=== PATIENT | female | born 1990 | race Caucasian/White ===

== ENCOUNTER 2018-05-02 20:46 | Emergency (ER) | payer MEDICARE, MEDICAID ==
[2018-05-02 21:21] VITALS: BP 116/76
--- NOTE | 2018-05-02 22:02 | EDM.PDOC ---
ED HPI GENERAL MEDICAL PROBLEM - General Chief Complaint: Skin Complaint Stated Complaint: BIG BRUISE ON LEFT LEG Time Seen by Provider: 05/02/18 21:59 Source of Information: Reports: Patient History Limitations: Reports: No Limitations - History of Present Illness INITIAL COMMENTS - FREE TEXT/NARRATIVE: With noted bruise to left lower leg. Unknown if she injured it. Does bruise easily. No pain to lower leg. No pain with walking. Onset: Gradual Onset Date: 04/28/18 Duration: Getting Worse Location: Reports: Lower Extremity, Left Severity: Mild Improves with: Reports: None Worsens with: Reports: None Associated Symptoms: Reports: No Other Symptoms - Related Data Allergies Allergy/AdvReac Type Severity Reaction Status Date / Time No Known Allergies Allergy Verified 05/02/18 21:21 Home Meds: Home Meds Calcium Carbonate/Vitamin D3 [Calcium 600 + Vit D Tablet] 1 each PO DAILY [History] Omeprazole Magnesium [Prilosec Otc] 20 mg PO DAILY 07/23/16 [History] Prenat Vit Comb.10/Iron/Fa/Dha [Vitafol-OB + DHA] 1 tab PO DAILY 07/23/16 [ History] Past Medical History - Past Health History Medical/Surgical History: Denies Medical/Surgical History Cardiovascular History: Reports: None 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 History: Reports: GERD 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: Other Musculoskeletal History: scoliosis Endocrine/Metabolic History: Reports: Diabetes, Gestational - Past Surgical History Other HEENT Surgeries/Procedures: lazy eye surgery Social & Family History - Tobacco Use Smoking Status *Q: Current Every Day Smoker Years of Tobacco use: 12 Packs/Tins Daily: 0.5 - Caffeine Use Caffeine Use: Reports: None - Recreational Drug Use Recreational Drug Use: No ED ROS GENERAL - Review of Systems Review Of Systems: See Below Constitutional: Reports: No Symptoms HEENT: Reports: No Symptoms Respiratory: Reports: No Symptoms Cardiovascular: Reports: No Symptoms Endocrine: Reports: No Symptoms GI/Abdominal: Reports: No Symptoms : Reports: No Symptoms Musculoskeletal: Reports: No Symptoms Skin: Reports: Bruising (left lower leg) Neurological: Reports: No Symptoms ED EXAM, SKIN/RASH Exam: See Below General Appearance: Alert, WD/WN, No Apparent Distress Ears: Normal External Exam, Normal Canal, Hearing Grossly Normal, Normal TMs Nose: Normal Inspection, Normal Mucosa, No Blood Throat/Mouth: Normal Inspection, Normal Lips, Normal Teeth, Normal Gums, Normal Oropharynx, Normal Voice, No Airway Compromise Head: Atraumatic, Normocephalic Neck: Normal Inspection, Supple, Non-Tender, Full Range of Motion Respiratory/Chest: No Respiratory Distress, Lungs Clear, Normal Breath Sounds, No Accessory Muscle Use, Chest Non-Tender Cardiovascular: Normal Peripheral Pulses, Regular Rate, Rhythm, No Edema, No Gallop, No JVD, No Murmur, No Rub GI/Abdominal: Normal Bowel Sounds, Soft, Non-Tender, No Organomegaly, No Distention, No Abnormal Bruit, No Mass Skin: Ecchymosis (bruise to left lower leg, medial ankle area) Course - Vital Signs Last Recorded V/S: Last Vital Signs Temp 97.8 F 05/02/18 21:24 Pulse 77 05/02/18 21:24 Resp 18 05/02/18 21:24 BP 116/76 05/02/18 21:24 Pulse Ox 97 05/02/18 21:24 - Orders/Labs/Meds Labs: Laboratory Tests 05/02/18 Range/Units 22:08 WBC 9.2 (4.5-11.0) K/uL RBC 4.70 (3.30-5.50) M/uL Hgb 13.6 D (12.0-15.0) g/dL Hct 40.3 (36.0-48.0) % MCV 86 (80-98) fL MCH 29 (27-31) pg MCHC 34 (32-36) % Plt Count 228 (150-400) K/uL Neut % (Auto) 68 H (36-66) % Lymph % (Auto) 20 L (24-44) % [place] % (Auto) 9 H (2-6) % Eos % (Auto) 2 (2-4) % Baso % (Auto) 0 (0-1) % Departure - Departure Time of Disposition: 22:16 Disposition: Home, Self-Care 01 Condition: Good Clinical Impression: Superficial bruising of ankle Qualifiers: Encounter type: initial encounter Laterality: left Qualified Code(s): S90.02XA - Contusion of left ankle, initial encounter - Discharge Information Instructions: Contusion, [id number] Referrals: Jonah Majano MD [Primary Care Provider] - Forms: ED Department Discharge Additional Instructions: CBC normal. Recommend injury prevention. May use ice to area. Reassurance given. Bruising will resolve over time. - Problem List & Annotations (1) Superficial bruising of ankle SNOMED Code(s): 38015515 Code(s): S90.00XA - CONTUSION OF UNSPECIFIED ANKLE, INITIAL ENCOUNTER Status: Acute Priority: Low Current Visit: Yes Qualifiers: Encounter type: initial encounter Laterality: left Qualified Code(s): S90.02XA - Contusion of left ankle, initial encounter
== END 2018-05-02 22:41 | disposition home or self-care (01) ==
LOC: JP.ED 20:46
DX: S90.02XA Contusion of left ankle, initial encounter (principal); K21.9 Gastro-esophageal reflux disease without esophagitis; F17.210 Nicotine dependence, cigarettes, uncomplicated; Z79.899 Other long term (current) drug therapy; X58.XXXA Exposure to other specified factors, initial encounter
CPT/HCPCS: 36415; 85025; 99284

== ENCOUNTER 2019-01-25 06:48 | Inpatient (IN) | payer MEDICARE, MEDICAID ==
[2019-01-25] MEDS ORDERED: Sodium Chloride 0.9% 1,000 ML IV ONE (07:43)
[2019-01-25] MEDS ORDERED: Misoprostol 50 MCG (1/2 of 100 MCG) Tab VAG ONE (07:53)
[2019-01-25] MEDS ORDERED: Ondansetron 4 MG/2 ML SDV IV PRN (08:03)
[2019-01-25] MEDS ORDERED: Acetaminophen 325 MG Tab PO PRN (08:03)
[2019-01-25] MEDS ORDERED: Sodium Chloride 0.9% 10 ML Syringe FLUSH PRN (08:03)
[2019-01-25] MEDS ORDERED: fentaNYL 100 MCG/2 ML SDV IVPUSH PRN (08:03)
--- NOTE | 2019-01-25 08:15 | PCM.LDHP ---
<Mckenzie Peterson - Last Filed: 01/25/19 08:10> L&D History of Present Illness - General Date of Service: 01/25/19 (Elective Induction ) Admit Problem/Dx: Patient Status Order with Admit Dx/Problem 01/25/19 08:04 Patient Status [ADT] Routine Admission Diagnosis/Problem Admission Diagnosis/Problem Term Source of Information: Patient History Limitations: Reports: No Limitations - History of Present Illness Introduction:: 01/25/19 Patient here for elective term induction of labor. SVE /-1. Timing/Duration: Reports: seconds:, minutes: (4-5) Severity: Mild Pain Score: 0 Improves with: Reports: None Worsens with: Reports: None Associated Symptoms: Reports: vaginal discharge (some bloody show with SVE) - Related Data Allergies/Adverse Reactions: Allergies Allergy/AdvReac Type Severity Reaction Status Date / Time No Known Allergies Allergy Verified 05/02/18 21:21 Home Medications: Home Meds Calcium Carbonate/Vitamin D3 [Calcium 600 + Vit D Tablet] 1 each PO DAILY [History] Omeprazole Magnesium [Prilosec Otc] 20 mg PO DAILY 07/23/16 [History] Prenat Vit Comb.10/Iron/Fa/Dha [Vitafol-OB + DHA] 1 tab PO DAILY 07/23/16 [ History] Past Medical History - Past Health History Medical/Surgical History: Denies Medical/Surgical History Cardiovascular History: Reports: None 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 History: Reports: GERD 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 Para: 2 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 (Approximate): (YANDEL 01/23/19) Other Musculoskeletal History: scoliosis Psychiatric History: Reports: Anxiety, Depression, Learning Disability Endocrine/Metabolic History: Reports: Diabetes, Gestational - Infectious Disease History Infectious Disease History: Reports: Chicken Pox - Past Surgical History Other HEENT Surgeries/Procedures: lazy eye surgery Social & Family History - Family History Family Medical History: Noncontributory - Caffeine Use Caffeine Use: Reports: Soda Other Caffeine Use: rarely H&P Review of Systems - Review of Systems: Review Of Systems: See Below General: Reports: No Symptoms HEENT: Reports: Post Nasal Drip, Sinus Congestion Pulmonary: Reports: No Symptoms Cardiovascular: Reports: No Symptoms 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: Reports: No Symptoms Genitourinary: Reports: No Symptoms Musculoskeletal: Reports: No Symptoms Skin: Reports: No Symptoms Psychiatric: Reports: No Symptoms Neurological: Reports: No Symptoms Hematologic/Lymphatic: Reports: No Symptoms Immunologic: Reports: No Symptoms L&D Exam - Exam Exam: See Below - Vital Signs Weight: 145 lb - OB Specific Contraction Duration (sec): 60-90 Contraction Frequency (min): 5-7 Contraction Intensity: Mild Movement: Active Heart Tones: Present Heart Tones per Min: 120 Heart Rate (FHR) Variability: Moderate (6-25 bmp) Presentation: Vertex - Saunders Score Saunders Score Cervix Position: Midposition Saunders Score Consistency: Medium Saunders Score Effacement: 51-70% Saunders Score Dilation: 3-4 cm Saunders Score 's Station: -1 ,0 Saunders Score Total: 8 - Exam General: Alert, Oriented HEENT: PERRLA, Conjunctiva Clear, EOMI, Hearing Intact, Mucosa Moist & [place], Nares Patent, Pupils Equal, Pupils Reactive Neck: Supple, Trachea Midline Lungs: Clear to Auscultation, Normal Respiratory Effort Cardiovascular: Regular Rate, Regular Rhythm GI/Abdominal Exam: Normal Bowel Sounds, Soft, Non-Tender, No Distention Rectal Exam: Normal Exam, Normal Rectal Tone Genitourinary: Normal external exam, Vaginal discharge. No: Vaginal bleeding Back Exam: Normal Inspection, Full Range of Motion Extremities: Normal Inspection, Normal Range of Motion, Non-Tender, No Pedal Edema, Normal Capillary Refill Skin: Warm, Dry, Intact Neurological: Cranial Nerves Intact, Reflexes Equal Bilateral Psychiatric: Alert, Normal Affect, Normal Mood - Patient Data Lab Results Last 24 hrs: Laboratory Results - last 24 hr 01/25/19 01/25/19 Range/Units 07:16 07:17 WBC 13.2 H (4.5-11.0) K/uL RBC 3.86 (3.30-5.50) M/uL Hgb 11.4 L D (12.0-15.0) g/dL Hct 33.4 L (36.0-48.0) % MCV 87 (80-98) fL MCH 30 (27-31) pg MCHC 34 (32-36) % Plt Count 177 (150-400) K/uL Neut % (Auto) 83 H (36-66) % Lymph % (Auto) 8 L (24-44) % [place] % (Auto) 9 H (2-6) % Eos % (Auto) 0 L (2-4) % Baso % (Auto) 0 (0-1) % Urine Color Yellow Urine Appearance Cloudy Urine pH 5.0 (4.5-8.0) Ur Specific [place] 1.020 (1.008-1.030) Urine Protein 30 H (NEGATIVE) mg/dL Urine Glucose (UA) Normal (NEGATIVE) mg/dL Urine Ketones 150 H (NEGATIVE) mg/dL Urine Occult Blood Large (NEGATIVE) Urine Nitrite Negative (NEGATIVE) Urine Bilirubin Negative (NEGATIVE) Urine Urobilinogen Normal (NORMAL) mg/dL Ur Leukocyte Esterase Large (NEGATIVE) Urine RBC 10-20 H (0-5) Urine WBC 50-75 H (0-5) Ur Epithelial Cells Many Amorphous Sediment Not seen Urine Bacteria Many Urine Mucus Many Result Diagrams: 01/25/19 07:16 - Problem List (1) SNOMED Code(s): 35511524 ICD Code: Z34.90 - ENCNTR FOR SUPRVSN OF NORMAL , UNSP, UNSP TRIMESTER Status: Acute Current Visit: Yes Qualifiers: Weeks of gestation: 40 weeks Qualified Code(s): Z3A.40 - 40 weeks gestation of (2) Elective induction of labor planned SNOMED Code(s): 997760593 ICD Code: CGD4603 - Status: Acute Current Visit: Yes (3) URI (upper respiratory infection) SNOMED Code(s): 43218105 ICD Code: J06.9 - ACUTE UPPER RESPIRATORY INFECTION, UNSPECIFIED Status: Acute Current Visit: Yes Qualifiers: URI type: unspecified viral URI Qualified Code(s): J06.9 - Acute upper respiratory infection, unspecified Problem List Initiated/Reviewed/Updated: Yes Orders Last 24hrs: Active Orders 24 hr Category Date Time Status Patient Status [ADT] Routine ADT 01/25/19 08:04 Ordered Antiembolic Devices [RC] .Routine Care 01/25/19 08:08 Ordered Communication Order [RC] ASDIRECTED Care 01/25/19 08:04 Ordered Heart Tones [RC] PER UNIT ROUTINE Care 01/25/19 08:04 Ordered Non Stress Test [RC] Click to Edit Care 01/25/19 08:04 Ordered Notify Provider Vital Signs [RC] PRN Care 01/25/19 08:09 Ordered Notify Provider [RC] PRN Care 01/25/19 08:04 Ordered Up ad Cara [RC] ASDIRECTED Care 01/25/19 08:03 Ordered Urinary Catheter Assessment [RC] ASDIRECTED Care 01/25/19 08:03 Ordered VTE/DVT Education [RC] Click to Edit Care 01/25/19 08:08 Ordered Vital Signs [RC] PER UNIT ROUTINE Care 01/25/19 08:04 Ordered Clear Liquid Diet [DIET] Diet 01/25/19 Lunch Ordered Regular Diet [DIET] Diet 01/25/19 Breakfast Ordered Acetaminophen [Tylenol] Med 01/25/19 08:03 Ordered 650 mg PO Q4H PRN Ondansetron [Zofran] Med 01/25/19 08:03 Ordered 4 mg IV Q4H PRN Sodium Chloride 0.9% [Normal Saline] 1,000 ml Med 01/25/19 07:43 Active IV .BOLUS Sodium Chloride 0.9% [Saline Flush] Med 01/25/19 08:03 Ordered 10 ml FLUSH ASDIRECTED PRN fentaNYL [Sublimaze] Med 01/25/19 08:03 Ordered 100 mcg IVPUSH Q1H PRN DVT/VTE Prophylaxis Reflex [OM.PC] Routine Oth 01/25/19 08:03 Ordered Saline Lock Insert [OM.PC] Routine Oth 01/25/19 08:04 Ordered Resuscitation Status Routine Resus Stat 01/25/19 08:03 Ordered Medication Orders Sodium Chloride (Normal Saline) 1,000 mls @ 999 mls/hr IV .BOLUS ONE Stop: 01/25/19 08:43 Last Admin: 01/25/19 07:48 Dose: 999 mls/hr Assessment/Plan Comment:: 01/25/19 28 yo is here for planned elective induction of labor. SVE /-1. GBS neg Hep B/C/HIV,RPR all negative EFW 7# Ketones elevated in urinalysis URI, common cold, feeling better than this weekend Plan: Cytotec 50 mcg placed vaginally 1L fluid bolus for ketones, then hydrate with 125 ml/hr Epidural when patient desires Plan to do ROM vs more cytotec vs pitocin around lunch Plan <Billie Amaral - Last Filed: 01/25/19 12:24> L&D History of Present Illness - General Admit Problem/Dx: Patient Status Order with Admit Dx/Problem 01/25/19 08:04 Patient Status [ADT] Routine Admission Diagnosis/Problem Admission Diagnosis/Problem Term L&D Exam - Vital Signs Vital Signs: Last Vital Signs Temp 96.3 F 01/25/19 07:06 Pulse 96 01/25/19 07:06 Resp 16 01/25/19 07:06 BP 107/60 01/25/19 07:06 Pulse Ox 98 01/25/19 07:06 - Patient Data Lab Results Last 24 hrs: Laboratory Results - last 24 hr 01/25/19 01/25/19 01/25/19 Range/Units 07:16 07:17 09:54 WBC 13.2 H (4.5-11.0) K/uL RBC 3.86 (3.30-5.50) M/uL Hgb 11.4 L D (12.0-15.0) g/dL Hct 33.4 L (36.0-48.0) % MCV 87 (80-98) fL MCH 30 (27-31) pg MCHC 34 (32-36) % Plt Count 177 (150-400) K/uL Neut % (Auto) 83 H (36-66) % Lymph % (Auto) 8 L (24-44) % [place] % (Auto) 9 H (2-6) % Eos % (Auto) 0 L (2-4) % Baso % (Auto) 0 (0-1) % Urine Color Yellow Urine Appearance Cloudy Urine pH 5.0 (4.5-8.0) Ur Specific [place] 1.020 (1.008-1.030) Urine Protein 30 H (NEGATIVE) mg/dL Urine Glucose (UA) Normal (NEGATIVE) mg/dL Urine Ketones 150 H (NEGATIVE) mg/dL Urine Occult Blood Large (NEGATIVE) Urine Nitrite Negative (NEGATIVE) Urine Bilirubin Negative (NEGATIVE) Urine Urobilinogen Normal (NORMAL) mg/dL Ur Leukocyte Esterase Large (NEGATIVE) Urine RBC 10-20 H (0-5) Urine WBC 50-75 H (0-5) Ur Epithelial Cells Many Amorphous Sediment Not seen Urine Bacteria Many Urine Mucus Many Urine Opiates Screen Negative (NEGATIVE) Ur Oxycodone Screen Negative (NEGATIVE) Urine Methadone Screen Negative (NEGATIVE) Ur Propoxyphene Screen Negative (NEGATIVE) Ur Barbiturates Screen Negative (NEGATIVE) Ur Tricyclics Screen Negative (NEGATIVE) Ur Phencyclidine Scrn Negative (NEGATIVE) Ur Amphetamine Screen Negative (NEGATIVE) U Methamphetamines Scrn Negative (NEGATIVE) Urine MDMA Screen Negative (NEGATIVE) U Benzodiazepines Scrn Negative (NEGATIVE) U Cocaine Metab Screen Negative (NEGATIVE) U Marijuana (THC) Screen Negative (NEGATIVE) Result Diagrams: 01/25/19 07:16 Orders Last 24hrs: Active Orders 24 hr Category Date Time Status Patient Status [ADT] Routine ADT 01/25/19 08:04 Active Antiembolic Devices [RC] .Routine Care 01/25/19 08:08 Active Communication Order [RC] ASDIRECTED Care 01/25/19 08:04 Active Communication Order [RC] Per Unit Routine Care 01/25/19 08:19 Active Non Stress Test [RC] Click to Edit Care 01/25/19 08:04 Active Insert Urinary Catheter [OM.PC] ASDIRECTED Care 01/25/19 08:30 Ordered Local Anesthetic Infusion Pump [RC] ASDIRECTED Care 01/25/19 08:19 Active Notify Provider Vital Signs [RC] PRN Care 01/25/19 08:09 Active Notify Provider [RC] PRN Care 01/25/19 08:04 Active PCEA Epidural [RC] ASDIRECTED Care 01/25/19 08:19 Active PCEA Epidural [RC] ASDIRECTED Care 01/25/19 08:19 Active Up ad Cara [RC] ASDIRECTED Care 01/25/19 08:03 Active Urinary Catheter Assessment [RC] ASDIRECTED Care 01/25/19 08:03 Active Urinary Catheter Assessment [RC] ASDIRECTED Care 01/25/19 08:19 Active VTE/DVT Education [RC] Click to Edit Care 01/25/19 08:08 Active Verify Patient Consent Obtain [RC] ASDIRECTED Care 01/25/19 08:19 Active Vital Signs [RC] PER UNIT ROUTINE Care 01/25/19 08:04 Active Clear Liquid Diet [DIET] Diet 01/25/19 Lunch Active Regular Diet [DIET] Diet 01/25/19 Breakfast Active Acetaminophen [Tylenol] Med 01/25/19 08:03 Active 650 mg PO Q4H PRN Ondansetron [Zofran] Med 01/25/19 08:03 Active 4 mg IV Q4H PRN Sodium Chloride 0.9% [Normal Saline] 1,000 ml Med 01/25/19 08:45 Active IV ASDIRECTED Sodium Chloride 0.9% [Saline Flush] Med 01/25/19 08:03 Active 10 ml FLUSH ASDIRECTED PRN fentaNYL [Sublimaze] Med 01/25/19 08:03 Active 100 mcg IVPUSH Q1H PRN DVT/VTE Prophylaxis Reflex [OM.PC] Routine Oth 01/25/19 08:03 Ordered Epidural Catheter Management [OM.PC] Urgent Oth 01/25/19 08:19 Ordered Saline Lock Insert [OM.PC] Routine Oth 01/25/19 08:04 Ordered Resuscitation Status Routine Resus Stat 01/25/19 08:03 Ordered Medication Orders Acetaminophen (Tylenol) 650 mg PO Q4H PRN PRN Reason: Pain (Mild 1-3) and fever Fentanyl (Sublimaze) 100 mcg IVPUSH Q1H PRN PRN Reason: Pain (moderate 4-6) Sodium Chloride (Normal Saline) 1,000 mls @ 125 mls/hr IV ASDIRECTED [facility]I Last Admin: 01/25/19 08:47 Dose: 125 mls/hr Ondansetron HCl (Zofran) 4 mg IV Q4H PRN PRN Reason: Nausea/Vomiting Sodium Chloride (Saline Flush) 10 ml FLUSH ASDIRECTED PRN PRN Reason: Keep Vein Open Assessment/Plan Comment:: I personally performed or re-performed the physical examination and medical decision making. I have verified all student documentation or findings, including history, physical exam and/or medical decision making. Billie Amaral APRN, CNM. CFNP
[2019-01-25] MEDS ORDERED: ePHEDrine 50 MG/ML SDV IVPUSH ONE (08:19)
[2019-01-25] MEDS ORDERED: Lactated Ringers 1,000 ML IV ONE (08:19)
[2019-01-25] MEDS ORDERED: Sodium Chloride 0.9% 1,000 ML IV SCH (08:45)
--- NOTE | 2019-01-25 10:21 | PCM.PNLD ---
Labor Progress Note - VS & Meds Vital Signs: Last Vital Signs Temp 35.7 C 01/25/19 07:06 Pulse 96 01/25/19 07:06 Resp 16 01/25/19 07:06 BP 107/60 01/25/19 07:06 Pulse Ox 98 01/25/19 07:06 Active Medications: Current Medications Acetaminophen (Tylenol) 650 mg PO Q4H PRN PRN Reason: Pain (Mild 1-3) and fever Fentanyl (Sublimaze) 100 mcg IVPUSH Q1H PRN PRN Reason: Pain (moderate 4-6) Sodium Chloride (Normal Saline) 1,000 mls @ 125 mls/hr IV ASDIRECTED AVI Last Admin: 01/25/19 08:47 Dose: 125 mls/hr Ondansetron HCl (Zofran) 4 mg IV Q4H PRN PRN Reason: Nausea/Vomiting Sodium Chloride (Saline Flush) 10 ml FLUSH ASDIRECTED PRN PRN Reason: Keep Vein Open Discontinued Medications Ephedrine Sulfate (Ephedrine Sulfate) 5 mg IVPUSH ONETIME ONE Stop: 01/25/19 08:20 Sodium Chloride (Normal Saline) 1,000 mls @ 999 mls/hr IV .BOLUS ONE Stop: 01/25/19 08:43 Last Admin: 01/25/19 07:48 Dose: 999 mls/hr Lactated Ringer's (Ringers, Lactated) 1,000 mls @ 999 mls/hr IV ONETIME ONE Stop: 01/25/19 09:19 Misoprostol (Cytotec) 50 mcg VAG ONETIME ONE Stop: 01/25/19 07:54 Last Admin: 01/25/19 08:00 Dose: 50 mcg - Uterine Contractions Uterine Monitoring Mode: External [place] Contraction Frequency (min): 3-5 Contraction Duration (sec): 40-110 Contraction Intensity: Mild Uterine Resting Tone: Soft - Monitoring Monitor Mode: External Ultrasound Heart Rate (FHR) Baseline: 115 Heart Rate (FHR) Variability: Moderate (6-25 bmp) Accelerations: Present, 15x15 Decelerations: None Strip Review: Category I - Vaginal Exam Dilation (cm): 3.5 Effacement (Percent): 70 Station: -1 Cervical Position: Midposition Sterile Vaginal Exam Performed By: Mckenzie Peterson Vaginal Exam Comment: cytotec 50 mcg vag. inserted - Labor Progress (Free Text) Labor Progress: 01/25/19 Just starting to feel contractions. More bloody show. SVE 3.5/-1. She plans to get into the tub now and would like an epidural soon. Discussed AROM risks including prolapsed cord, and infection. She would like to proceed with this if she doesn't have SROM before then. Plan will be to get an epidural around lunch time and then perform AROM.
[2019-01-25] MEDS ORDERED: ePHEDrine 50 MG/ML SDV ONE (11:22)
[2019-01-25] MEDS ORDERED: Ropivacaine 100 ML ONE (11:28)
--- NOTE | 2019-01-25 12:22 | PCM.PNLD ---
<Mckenzie Peterson - Last Filed: 01/25/19 12:19> Labor Progress Note - VS & Meds Vital Signs: Last Vital Signs Temp 35.7 C 01/25/19 07:06 Pulse 96 01/25/19 07:06 Resp 16 01/25/19 07:06 BP 107/60 01/25/19 07:06 Pulse Ox 98 01/25/19 07:06 Active Medications: Current Medications Acetaminophen (Tylenol) 650 mg PO Q4H PRN PRN Reason: Pain (Mild 1-3) and fever Fentanyl (Sublimaze) 100 mcg IVPUSH Q1H PRN PRN Reason: Pain (moderate 4-6) Sodium Chloride (Normal Saline) 1,000 mls @ 125 mls/hr IV ASDIRECTED AVI Last Admin: 01/25/19 08:47 Dose: 125 mls/hr Ondansetron HCl (Zofran) 4 mg IV Q4H PRN PRN Reason: Nausea/Vomiting Sodium Chloride (Saline Flush) 10 ml FLUSH ASDIRECTED PRN PRN Reason: Keep Vein Open Discontinued Medications Ephedrine Sulfate (Ephedrine Sulfate) 5 mg IVPUSH ONETIME ONE Stop: 01/25/19 08:20 Ephedrine Sulfate (Ephedrine Sulfate) Confirm Administered Dose 50 mg .ROUTE .STK-MED ONE Stop: 01/25/19 11:23 Sodium Chloride (Normal Saline) 1,000 mls @ 999 mls/hr IV .BOLUS ONE Stop: 01/25/19 08:43 Last Admin: 01/25/19 07:48 Dose: 999 mls/hr Lactated Ringer's (Ringers, Lactated) 1,000 mls @ 999 mls/hr IV ONETIME ONE Stop: 01/25/19 09:19 Last Admin: 01/25/19 10:42 Dose: 999 mls/hr Ropivacaine (Naropin 0.2%) Confirm Administered Dose 100 mls @ as directed .ROUTE .STK-MED ONE Stop: 01/25/19 11:29 Misoprostol (Cytotec) 50 mcg VAG ONETIME ONE Stop: 01/25/19 07:54 Last Admin: 01/25/19 08:00 Dose: 50 mcg - Uterine Contractions Uterine Monitoring Mode: None in Use Contraction Frequency (min): 1.5-2 Contraction Duration (sec): 60 Contraction Intensity: Moderate to Strong Uterine Resting Tone: Soft - Monitoring Monitor Mode: External Ultrasound Heart Rate (FHR) Baseline: 130 Heart Rate (FHR) Variability: Moderate (6-25 bmp) Accelerations: Present, 15x15 Decelerations: None, Late (couple of lates after epidural), Variable, Intermittent (<50% x 20 min) Strip Review: Category I - Vaginal Exam Dilation (cm): 4 Effacement (Percent): 80 Station: 0 Cervical Position: Anterior Sterile Vaginal Exam Performed By: Mckenzie Peterson Vaginal Exam Comment: cytotec 50 mcg vag. inserted - Labor Progress (Free Text) Labor Progress: 01/25/[address], patient comfortable. AROM performed with clear fluid. Category 1 tracing. SVE /0. Peanut ball in place. Anticipate . <Billie Amaral - Last Filed: 01/25/19 12:26> Labor Progress Note - VS & Meds Vital Signs: Last Vital Signs Temp 96.3 F 01/25/19 07:06 Pulse 96 01/25/19 07:06 Resp 16 01/25/19 07:06 BP 107/60 01/25/19 07:06 Pulse Ox 98 01/25/19 07:06 Active Medications: Current Medications Acetaminophen (Tylenol) 650 mg PO Q4H PRN PRN Reason: Pain (Mild 1-3) and fever Fentanyl (Sublimaze) 100 mcg IVPUSH Q1H PRN PRN Reason: Pain (moderate 4-6) Sodium Chloride (Normal Saline) 1,000 mls @ 125 mls/hr IV ASDIRECTED [facility] Last Admin: 01/25/19 08:47 Dose: 125 mls/hr Ondansetron HCl (Zofran) 4 mg IV Q4H PRN PRN Reason: Nausea/Vomiting Sodium Chloride (Saline Flush) 10 ml FLUSH ASDIRECTED PRN PRN Reason: Keep Vein Open Discontinued Medications Ephedrine Sulfate (Ephedrine Sulfate) 5 mg IVPUSH ONETIME ONE Stop: 01/25/19 08:20 Ephedrine Sulfate (Ephedrine Sulfate) Confirm Administered Dose 50 mg .ROUTE .STK-MED ONE Stop: 01/25/19 11:23 Sodium Chloride (Normal Saline) 1,000 mls @ 999 mls/hr IV .BOLUS ONE Stop: 01/25/19 08:43 Last Admin: 01/25/19 07:48 Dose: 999 mls/hr Lactated Ringer's (Ringers, Lactated) 1,000 mls @ 999 mls/hr IV ONETIME ONE Stop: 01/25/19 09:19 Last Admin: 01/25/19 10:42 Dose: 999 mls/hr Ropivacaine (Naropin 0.2%) Confirm Administered Dose 100 mls @ as directed .ROUTE .STK-MED ONE Stop: 01/25/19 11:29 Misoprostol (Cytotec) 50 mcg VAG ONETIME ONE Stop: 01/25/19 07:54 Last Admin: 01/25/19 08:00 Dose: 50 mcg - Labor Progress (Free Text) Labor Progress: I personally performed or re-performed the physical examination and medical decision making. I have verified all student documentation or findings, including history, physical exam and/or medical decision making. Billie Amaral APRN, LEEANNM, CFNP
[2019-01-25] MEDS ORDERED: Ropivacaine 100 ML EPIDUR SCH (13:15)
[2019-01-25] MEDS ORDERED: Naloxone 0.4 MG/ML SDV IVPUSH PRN (13:15)
[2019-01-25] MEDS ORDERED: ePHEDrine 50 MG/ML SDV IV PRN (13:15)
[2019-01-25] MEDS ORDERED: Lidocaine 1% 50 ML MDV ONE (14:18)
[2019-01-25] MEDS ORDERED: Acetaminophen 325 MG Tab, 50 Tab Bulk Bottle PO PRN (15:12)
[2019-01-25] MEDS ORDERED: Witch Hazel Medicated Pads 100/Jar TOP PRN (15:12)
[2019-01-25] MEDS ORDERED: Ibuprofen 200 MG Tab, 24 Tab Bulk Bottle PO PRN (15:12)
[2019-01-25] MEDS ORDERED: Benzocaine 20% Top Spray 56 GM Bottle TOP PRN (15:12)
--- NOTE | 2019-01-25 15:38 | PCM.DEL ---
<Liliana Petersonie - Last Filed: 01/25/19 15:17> L & D Note - General Info Date of Service: 01/25/19 Mother's Due Date: 01/23/19 - Delivery Note Labor: Augmented by ARM Cervical Ripening Method: Misoprostil Delivery Outcome: Livebirth Infant Delivery Method: Spontaneous Vaginal Delivery-Single Infant Delivery Mode: Vacuum Extraction Presentation: Right Occiput Anterior (CRISELDA) Nuchal Cord: None Anesthesia Type: Epidural Amniotic Fluid Description: Clear Episiotomy Type: Midline Laceration: 2nd Degree Suture type: Vicryl Suture size: 3-0 Placenta: Intact, Spontaneous Cord: 3 Vessels Estimated Blood Loss: 200 Resuscitation Needed: No : Bulb Syringe, Stimulated, Warmed, [place] Used Provider: Billie Amaral Score 1 min: 8 Score 5 min: 9 Second Stage Interventions: Reports: Second Nurse Assessed Progress of Descent, Second Nurse Reviewed Contraction Pattern, Second Nurse Reviewed Heart Tones, Encouragement Given, Pushing Ineffectively, Pushing, Feet in Foot Rests, Pushing, Pulls Own Legs Back Delivery Comments (Free Text/Narrative):: 01/25/19 28 yo delivered a viable male infant at 1442. After complete, patient started pushing. At 1430, FHT's started having recurrent variable decelerations into the 70's with no progress in the second stage. Due to recurrent heart tones into the 70's and difficulty recovering an episiotomy was cut at 1434. She did not have any progress with the episiotomy. Briefly described the situation to the patient and she agreed to a vacuum delivery. A kiwi vacuum was applied at +2 station just forward of the posterior fontanelle along the sagittal suture and had two pop off's. One pop off at 1436 and onother at 1438. The kiwi was reapplied at 1440 and there was successful delivery of the head. Baby was placed on mothers chest where he cried spontaneously. There is superficial bruising where the ring of the vacuum was but no sign of hematoma. 2nd degree episiotomy without extension with repair EBL 200 mL Baby 7 lb 2 oz, Apgars 8, 9. Induction Criteria - Saunders Score Saunders Score Dilation: 3-4 cm Saunders Score Effacement: 60-70% Saunders Score 's Station: -1 ,0 Saunders Score Consistency: Medium Saunders Score Cervix Position: Midposition Saunders Score Total: 8 Saunders Score Presenting Part: Reports: Cephalic - Induction Gestational Age >/= 39 wks: Yes Estimated Pelvis: Reports: Adequate Reassuring Monitoring Strip: Yes Absence of Tachy Systole: Yes - Augmentation Estimated Pelvis: Reports: Adequate Weight Estimated:: Reports: AGA Estimated Weight if LGA: 7 lb Reassuring Monitoring Strip: Yes Absence of Tachy Systole: Yes Vacuum Extractor Progress Note - Alternative Labor Strategies Considered Alternative Labor Strategies Considered:: Reports: Yes Indications Considered:: Reports: Yes (episiotomy) Indications:: Reports: Suspicion of Immediate or Potential Compromise Time Out:: Reports: Yes - Patient Prepared Patient Prepared:: Reports: Yes Informed Consent:: Reports: Yes, Verbal Risks: Reports: Yes Risks Include:: Reports: Laceration, Shoulder Dystocia, Maternal Injury Anesthesia/Analgesia Adequate:: Reports: Yes - Probability of Success High Probability of Success:: Reports: Yes Weight Estimated:: Reports: AGA Patient Diabetic:: Reports: No Pelvis Adequate:: Reports: Yes Position:: OA Asynclitic:: Reports: No Station:: +2 - Application Time Maximum Application Time & Number of Pop-Offs Predetermined:: Reports: Yes Number of Times Cup Disengaged:: 2 Type of Vacuum Used:: Reports: Cup: Soft Vacuum Extraction: Successful Comments:: 01/25/19 Pressure in the green zone maintained. - Exit Strategy Exit strategy available:: Reports: Yes and resuscitation teams readily available:: Reports: Yes - General Info Date of Service: 01/25/19 (Vaginal delivery) Functional Status: Reports: Pain Controlled - Review of Systems General: Reports: No Symptoms HEENT: Reports: Post Nasal Drip Pulmonary: Reports: No Symptoms Cardiovascular: Reports: No Symptoms 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: Reports: No Symptoms Genitourinary: Reports: No Symptoms Musculoskeletal: Reports: No Symptoms Skin: Reports: No Symptoms Neurological: Reports: No Symptoms Psychiatric: Reports: No Symptoms - Patient Data Vitals - Most Recent: Last Vital Signs Temp 35.7 C 01/25/19 07:06 Pulse 96 01/25/19 07:06 Resp 16 01/25/19 07:06 BP 107/60 01/25/19 07:06 Pulse Ox 98 01/25/19 07:06 Weight - Most Recent: 145 lb 0.004 oz Lab Results Last 24 Hours: Laboratory Results - last 24 hr 01/25/19 01/25/19 01/25/19 Range/Units 07:16 07:17 09:54 WBC 13.2 H (4.5-11.0) K/uL RBC 3.86 (3.30-5.50) M/uL Hgb 11.4 L D (12.0-15.0) g/dL Hct 33.4 L (36.0-48.0) % MCV 87 (80-98) fL MCH 30 (27-31) pg MCHC 34 (32-36) % Plt Count 177 (150-400) K/uL Neut % (Auto) 83 H (36-66) % Lymph % (Auto) 8 L (24-44) % [place] % (Auto) 9 H (2-6) % Eos % (Auto) 0 L (2-4) % Baso % (Auto) 0 (0-1) % Urine Color Yellow Urine Appearance Cloudy Urine pH 5.0 (4.5-8.0) Ur Specific [place] 1.020 (1.008-1.030) Urine Protein 30 H (NEGATIVE) mg/dL Urine Glucose (UA) Normal (NEGATIVE) mg/dL Urine Ketones 150 H (NEGATIVE) mg/dL Urine Occult Blood Large (NEGATIVE) Urine Nitrite Negative (NEGATIVE) Urine Bilirubin Negative (NEGATIVE) Urine Urobilinogen Normal (NORMAL) mg/dL Ur Leukocyte Esterase Large (NEGATIVE) Urine RBC 10-20 H (0-5) Urine WBC 50-75 H (0-5) Ur Epithelial Cells Many Amorphous Sediment Not seen Urine Bacteria Many Urine Mucus Many Urine Opiates Screen Negative (NEGATIVE) Ur Oxycodone Screen Negative (NEGATIVE) Urine Methadone Screen Negative (NEGATIVE) Ur Propoxyphene Screen Negative (NEGATIVE) Ur Barbiturates Screen Negative (NEGATIVE) Ur Tricyclics Screen Negative (NEGATIVE) Ur Phencyclidine Scrn Negative (NEGATIVE) Ur Amphetamine Screen Negative (NEGATIVE) U Methamphetamines Scrn Negative (NEGATIVE) Urine MDMA Screen Negative (NEGATIVE) U Benzodiazepines Scrn Negative (NEGATIVE) U Cocaine Metab Screen Negative (NEGATIVE) U Marijuana (THC) Screen Negative (NEGATIVE) Med Orders - Current: Current Medications Acetaminophen (Tylenol) 650 mg PO Q4H PRN PRN Reason: Pain (Mild 1-3) and fever Ephedrine Sulfate (Ephedrine Sulfate) 5 - 10 mg IV ASDIRECTED PRN PRN Reason: Systolic BP less than 100 Fentanyl (Sublimaze) 100 mcg IVPUSH Q1H PRN PRN Reason: Pain (moderate 4-6) Sodium Chloride (Normal Saline) 1,000 mls @ 125 mls/hr IV ASDIRECTED [facility] Last Admin: 01/25/19 08:47 Dose: 125 mls/hr Ropivacaine (Naropin 0.2%) 100 mls @ 0 mls/hr EPIDUR ASDIRECTED AVI; Protocol Naloxone HCl (Narcan) 0.1 mg IVPUSH Q5M PRN PRN Reason: IF RESP RATE LESS THAN 6 Ondansetron HCl (Zofran) 4 mg IV Q4H PRN PRN Reason: Nausea/Vomiting Sodium Chloride (Saline Flush) 10 ml FLUSH ASDIRECTED PRN PRN Reason: Keep Vein Open Discontinued Medications Ephedrine Sulfate (Ephedrine Sulfate) 5 mg IVPUSH ONETIME ONE Stop: 01/25/19 08:20 Ephedrine Sulfate (Ephedrine Sulfate) Confirm Administered Dose 50 mg .ROUTE .STK-MED ONE Stop: 01/25/19 11:23 Sodium Chloride (Normal Saline) 1,000 mls @ 999 mls/hr IV .BOLUS ONE Stop: 01/25/19 08:43 Last Admin: 01/25/19 07:48 Dose: 999 mls/hr Lactated Ringer's (Ringers, Lactated) 1,000 mls @ 999 mls/hr IV ONETIME ONE Stop: 01/25/19 09:19 Last Admin: 01/25/19 10:42 Dose: 999 mls/hr Ropivacaine (Naropin 0.2%) Confirm Administered Dose 100 mls @ as directed .ROUTE .STK-MED ONE Stop: 01/25/19 11:29 Oxytocin/Sodium Chloride (Pitocin In Ns 20 Units/1,000 Ml) Confirm Administered Dose 20 unit in 1,000 mls @ as directed .ROUTE .STK-MED ONE Stop: 01/25/19 14:19 Lidocaine HCl (Xylocaine 1%) Confirm Administered Dose 100 ml .ROUTE .STK-MED ONE Stop: 01/25/19 14:19 Misoprostol (Cytotec) 50 mcg VAG ONETIME ONE Stop: 01/25/19 07:54 Last Admin: 01/25/19 08:00 Dose: 50 mcg - Exam General: Alert, Oriented HEENT: Pupils Equal, Pupils Reactive, EOMI, Mucous Membr. Moist/[place] Neck: Supple Lungs: Clear to Auscultation, Normal Respiratory Effort Cardiovascular: Regular Rate, Regular Rhythm GI/Abdominal Exam: Normal Bowel Sounds, Soft, Non-Tender, No Organomegaly, No Distention, No Abnormal Bruit, No Mass, Pelvis Stable (Female) Exam: Normal External Exam, Normal Bimanual Exam, Cervical Dilatation, Enlarged Uterus, Fundal Height, Vaginal Bleeding. No: Cervical Lesions, Vaginal Lesions, Vaginal Tears Back Exam: Normal Inspection, Full Range of Motion Extremities: Normal Inspection, Normal Range of Motion, Non-Tender, No Pedal Edema, Normal Capillary Refill Skin: Warm, Dry Neurological: No New Focal Deficit Psy/Mental Status: Alert, Normal Affect, Normal Mood - Problem List & Annotations (1) SNOMED Code(s): 40503172 Code(s): Z34.90 - ENCNTR FOR SUPRVSN OF NORMAL , UNSP, UNSP TRIMESTER Status: Acute Current Visit: Yes Qualifiers: Weeks of gestation: 40 weeks Qualified Code(s): Z3A.40 - 40 weeks gestation of (2) Elective induction of labor planned SNOMED Code(s): 338657539 Code(s): RLF3018 - Status: Acute Current Visit: Yes (3) URI (upper respiratory infection) SNOMED Code(s): 71265320 Code(s): J06.9 - ACUTE UPPER RESPIRATORY INFECTION, UNSPECIFIED Status: Acute Current Visit: Yes Qualifiers: URI type: unspecified viral URI Qualified Code(s): J06.9 - Acute upper respiratory infection, unspecified (4) Del w/ 2 deg lac-unsp SNOMED Code(s): 6162828 Code(s): O70.1 - SECOND DEGREE PERINEAL LACERATION DURING DELIVERY Status: Acute Current Visit: Yes (5) Vacuum extractor delivery, delivered SNOMED Code(s): 125475544 Code(s): O66.5 - ATTEMPTED APPLICATION OF VACUUM EXTRACTOR AND FORCEPS Status: Acute Current Visit: Yes (6) Vaginal delivery SNOMED Code(s): 360883732 Code(s): O80 - ENCOUNTER FOR FULL-TERM UNCOMPLICATED DELIVERY Status: Acute Current Visit: Yes - Problem List Review Problem List Initiated/Reviewed/Updated: Yes - My Orders Last 24 Hours: My Active Orders 01/25/19 08:03 Up ad Cara [RC] ASDIRECTED Urinary Catheter Assessment [RC] ASDIRECTED Acetaminophen [Tylenol] 650 mg PO Q4H PRN Ondansetron [Zofran] 4 mg IV Q4H PRN Sodium Chloride 0.9% [Saline Flush] 10 ml FLUSH ASDIRECTED PRN fentaNYL [Sublimaze] 100 mcg IVPUSH Q1H PRN DVT/VTE Prophylaxis Reflex [OM.PC] Routine Resuscitation Status Routine 01/25/19 08:04 Patient Status [ADT] Routine Communication Order [RC] ASDIRECTED Non Stress Test [RC] Click to Edit Notify Provider [RC] PRN Vital Signs [RC] PER UNIT ROUTINE Saline Lock Insert [OM.PC] Routine 01/25/19 08:08 Antiembolic Devices [RC] .Routine VTE/DVT Education [RC] Click to Edit 01/25/19 08:09 Notify Provider Vital Signs [RC] PRN 01/25/19 08:19 Communication Order [RC] Per Unit Routine Local Anesthetic Infusion Pump [RC] ASDIRECTED PCEA Epidural [RC] ASDIRECTED PCEA Epidural [RC] ASDIRECTED Urinary Catheter Assessment [RC] ASDIRECTED Verify Patient Consent Obtain [RC] ASDIRECTED Epidural Catheter Management [OM.PC] Urgent 01/25/19 08:30 Insert Urinary Catheter [OM.PC] ASDIRECTED 01/25/19 15:12 Patient Status [ADT] Routine May Shower [RC] ASDIRECTED Vital Signs [RC] PFP Acetaminophen [Tylenol Bulk Bottle] 325 mg PO Q4H PRN Benzocaine [Tefg-U-Dlccgqa 20% [place]] See Dose Instructions TOP Q4H PRN Ibuprofen [Motrin Bulk Bottle] 600 mg PO Q6H PRN Witch Lu [Tucks] 1 pad TOP ASDIRECTED PRN Assess Lochia [WOMSER] Per Unit Routine Assess Uterine Involution [WOMSER] Per Unit Routine 01/25/19 15:14 Ice Therapy [OM.PC] Per Unit Routine Perineal Care [OM.PC] Per Unit Routine Peripheral IV Discontinue [OM.PC] Routine Sitz Bath [OM.PC] Per Unit Routine 01/25/19 21:00 Docusate Sodium [Colace] 100 mg PO BID 01/25/19 Breakfast Regular Diet [DIET] 01/25/19 Dinner Regular Diet [DIET] 01/25/19 Lunch Clear Liquid Diet [DIET] 01/26/19 05:11 CBC WITH AUTO DIFF [HEME] AM - Assessment Assessment:: 01/25/19 28 yo operative vaginal delivery 2nd degree episiotomy without extension, repaired Pain controlled Plans to formula feed only FF, bleeding light - Plan Plan:: I personally performed or re-performed the physical examination and medical decision making. I have verified all student documentation or findings, including history, physical exam and/or medical decision making. Billie Amaral APRN, CNM. JERO 01/25/19 Routine cares Shahbaz kit for pain control Tub baths for episiotomy Formula feeding support CBC in am <Billie Amaral A - Last Filed: 01/25/19 16:51> L & D Note - Delivery Note Delivery Comments (Free Text/Narrative):: planned 48-72 hour stay. Delivery note: Kiwi was removed after delivery of the head. Some bruising was noted, no other injury found. I personally performed or re-performed the physical examination and medical decision making. I have verified all student documentation or findings, including history, physical exam and/or medical decision making, with the following exceptions []. Billie Amaral APRN, CNM, JERO - Patient Data Vitals - Most Recent: Last Vital Signs Temp 96.3 F 01/25/19 07:06 Pulse 96 01/25/19 07:06 Resp 16 01/25/19 07:06 BP 107/60 01/25/19 07:06 Pulse Ox 98 01/25/19 07:06 I&O - Last 24 Hours: Intake & Output 01/25/19 01/25/19 01/25/19 06:59 14:59 22:59 Output Total 400 Balance -400 Lab Results Last 24 Hours: Laboratory Results - last 24 hr 01/25/19 01/25/19 01/25/19 Range/Units 07:16 07:17 09:54 WBC 13.2 H (4.5-11.0) K/uL RBC 3.86 (3.30-5.50) M/uL Hgb 11.4 L D (12.0-15.0) g/dL Hct 33.4 L (36.0-48.0) % MCV 87 (80-98) fL MCH 30 (27-31) pg MCHC 34 (32-36) % Plt Count 177 (150-400) K/uL Neut % (Auto) 83 H (36-66) % Lymph % (Auto) 8 L (24-44) % [place] % (Auto) 9 H (2-6) % Eos % (Auto) 0 L (2-4) % Baso % (Auto) 0 (0-1) % Urine Color Yellow Urine Appearance Cloudy Urine pH 5.0 (4.5-8.0) Ur Specific [place] 1.020 (1.008-1.030) Urine Protein 30 H (NEGATIVE) mg/dL Urine Glucose (UA) Normal (NEGATIVE) mg/dL Urine Ketones 150 H (NEGATIVE) mg/dL Urine Occult Blood Large (NEGATIVE) Urine Nitrite Negative (NEGATIVE) Urine Bilirubin Negative (NEGATIVE) Urine Urobilinogen Normal (NORMAL) mg/dL Ur Leukocyte Esterase Large (NEGATIVE) Urine RBC 10-20 H (0-5) Urine WBC 50-75 H (0-5) Ur Epithelial Cells Many Amorphous Sediment Not seen Urine Bacteria Many Urine Mucus Many Urine Opiates Screen Negative (NEGATIVE) Ur Oxycodone Screen Negative (NEGATIVE) Urine Methadone Screen Negative (NEGATIVE) Ur Propoxyphene Screen Negative (NEGATIVE) Ur Barbiturates Screen Negative (NEGATIVE) Ur Tricyclics Screen Negative (NEGATIVE) Ur Phencyclidine Scrn Negative (NEGATIVE) Ur Amphetamine Screen Negative (NEGATIVE) U Methamphetamines Scrn Negative (NEGATIVE) Urine MDMA Screen Negative (NEGATIVE) U Benzodiazepines Scrn Negative (NEGATIVE) U Cocaine Metab Screen Negative (NEGATIVE) U Marijuana (THC) Screen Negative (NEGATIVE) Med Orders - Current: Current Medications Acetaminophen (Tylenol) 650 mg PO Q4H PRN PRN Reason: Pain (Mild 1-3) and fever Acetaminophen (Tylenol Bulk Bottle) 325 mg PO Q4H PRN PRN Reason: Pain Benzocaine (Lafh-N-Xugltos 20% [place]) 0 gm TOP Q4H PRN PRN Reason: Perineal Comfort Measure Docusate Sodium (Colace) 100 mg PO BID AVI Ephedrine Sulfate (Ephedrine Sulfate) 5 - 10 mg IV ASDIRECTED PRN PRN Reason: Systolic BP less than 100 Fentanyl (Sublimaze) 100 mcg IVPUSH Q1H PRN PRN Reason: Pain (moderate 4-6) Fluticasone Propionate (Flonase) 0 gm NASBOTH DAILY [facility] Sodium Chloride (Normal Saline) 1,000 mls @ 125 mls/hr IV ASDIRECTED [facility] Last Admin: 01/25/19 08:47 Dose: 125 mls/hr Ropivacaine (Naropin 0.2%) 100 mls @ 0 mls/hr EPIDUR ASDIRECTED AVI; Protocol Ibuprofen (Motrin Bulk Bottle) 600 mg PO Q6H PRN PRN Reason: Pain Naloxone HCl (Narcan) 0.1 mg IVPUSH Q5M PRN PRN Reason: IF RESP RATE LESS THAN 6 Ondansetron HCl (Zofran) 4 mg IV Q4H PRN PRN Reason: Nausea/Vomiting Sodium Chloride (Saline Flush) 10 ml FLUSH ASDIRECTED PRN PRN Reason: Keep Vein Open Witch Lu (Tucks) 1 pad TOP ASDIRECTED PRN PRN Reason: Hemorrhoids Discontinued Medications Ephedrine Sulfate (Ephedrine Sulfate) 5 mg IVPUSH ONETIME ONE Stop: 01/25/19 08:20 Last Admin: 01/25/19 16:41 Dose: Not Given Ephedrine Sulfate (Ephedrine Sulfate) Confirm Administered Dose 50 mg .ROUTE .STK-MED ONE Stop: 01/25/19 11:23 Last Admin: 01/25/19 16:41 Dose: Not Given Sodium Chloride (Normal Saline) 1,000 mls @ 999 mls/hr IV .BOLUS ONE Stop: 01/25/19 08:43 Last Admin: 01/25/19 07:48 Dose: 999 mls/hr Lactated Ringer's (Ringers, Lactated) 1,000 mls @ 999 mls/hr IV ONETIME ONE Stop: 01/25/19 09:19 Last Admin: 01/25/19 10:42 Dose: 999 mls/hr Ropivacaine (Naropin 0.2%) Confirm Administered Dose 100 mls @ as directed .ROUTE .STK-MED ONE Stop: 01/25/19 11:29 Oxytocin/Sodium Chloride (Pitocin In Ns 20 Units/1,000 Ml) Confirm Administered Dose 20 unit in 1,000 mls @ as directed .ROUTE .STK-MED ONE Stop: 01/25/19 14:19 Lidocaine HCl (Xylocaine 1%) Confirm Administered Dose 100 ml .ROUTE .STK-MED ONE Stop: 01/25/19 14:19 Misoprostol (Cytotec) 50 mcg VAG ONETIME ONE Stop: 01/25/19 07:54 Last Admin: 01/25/19 08:00 Dose: 50 mcg - My Orders Last 24 Hours: My Active Orders 01/25/19 08:45 Sodium Chloride 0.9% [Normal Saline] 1,000 ml IV ASDIRECTED 01/25/19 13:15 Naloxone [Narcan] 0.1 mg IVPUSH Q5M PRN Ropivacaine [Naropin 0.2%] 100 ml EPIDUR ASDIRECTED ePHEDrine [ePHEDrine sulfate] 5 - 10 mg IV ASDIRECTED PRN
[2019-01-25] MEDS: Fluticasone Propionate Nasal Spray 16 GM Bottle NASBOTH SCH (17:29)
[2019-01-25] MEDS: Docusate Sodium 100 MG Cap PO SCH (20:45)
--- NOTE | 2019-01-25 20:58 | ANES ---
DATE OF SERVICE: 01/25/2019 LABOR EPIDURAL NOTE I was called for a labor epidural late this morning for an induction upstairs in the OB Department. Fluid bolus had already been given. According to nurses, platelet count was 177. I was at the bedside at approximately 10:55. A brief history and physical was done with the patient. The patient has had a normal . No abnormal bleeding issues. She is not on any blood thinners and does not have any significant heart valve issues. Risks and benefits were reviewed with the patient. The patient has had an epidural before and wishes to proceed with a labor epidural today. She understood the risks and benefits. The patient did have a history of scoliosis according to her, but had no difficulty placing the epidural. DESCRIPTION OF PROCEDURE: The patient was sat at the edge of the bed. Betadine prep x3 to the lumbar region was done. Sterile drape was placed. 1% lidocaine skin wheal and deep was done. A 17-gauge Tuohy needle was inserted at approximately the L4-L5 position. Loss of resistance was achieved at approximately 5 cm. Negative paresthesia, negative heme, and negative CSF were noted. I then proceeded to thread the catheter easily into the Tuohy needle. After the catheter was threaded in, Tuohy needle was withdrawn and the catheter was pulled back and secured at approximately 12 cm. Sterile drape was taken down and then catheter was fully secured to the patient's back. At that time, I gave the patient a 3 mL test dose. The patient was then laid in the supine position with the head of bed elevated at approximately 20 degrees and slight left uterine displacement. After a few minutes, the test dose showed no ill affects. No sign of local anesthetic toxicity. The patient was able to move her legs and her heart rate maintained in the 90s. I then proceeded to give 12 mL of 0.2% ropivacaine bolus via the epidural and started her on a 0.2% ropivacaine drip at 12 mL an hour via the epidural. The patient tolerated the procedure without difficulty. Blood pressure is maintained after the bolus. Please refer to the nurse's notes for vital signs. We will continue to monitor the patient closely, but the patient was having some relief prior to leaving the bedside. Fab Ramirez CRNA /[id number]
--- NOTE | 2019-01-26 08:42 | PCM.PNPP ---
<Mckenzie Peterson - Last Filed: 01/26/19 08:37> - General Info Date of Service: 01/26/19 (PP day 1) Functional Status: Reports: Pain Controlled - Review of Systems General: Reports: No Symptoms HEENT: Reports: No Symptoms Pulmonary: Reports: No Symptoms Cardiovascular: Reports: No Symptoms 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: Reports: No Symptoms Genitourinary: Reports: No Symptoms Musculoskeletal: Reports: No Symptoms Skin: Reports: No Symptoms Neurological: Reports: No Symptoms Psychiatric: Reports: No Symptoms - General Info Date of Service: 01/26/19 - Patient Data Vital Signs - Most Recent: Last Vital Signs Temp 36.2 C 01/26/19 07:00 Pulse 63 01/26/19 07:00 Resp 16 01/26/19 07:00 BP 92/56 L 01/26/19 07:00 Pulse Ox 98 01/26/19 07:00 Weight - Most Recent: 145 lb 0.004 oz Lab Results - Last 24 Hours: Laboratory Results - last 24 hr 01/25/19 01/26/19 Range/Units 09:54 06:01 WBC 11.1 H (4.5-11.0) K/uL RBC 3.67 (3.30-5.50) M/uL Hgb 10.5 L (12.0-15.0) g/dL Hct 32.0 L (36.0-48.0) % MCV 87 (80-98) fL MCH 29 (27-31) pg MCHC 33 (32-36) % Plt Count 151 (150-400) K/uL Neut % (Auto) 75 H (36-66) % Lymph % (Auto) 16 L (24-44) % [place] % (Auto) 9 H (2-6) % Eos % (Auto) 1 L (2-4) % Baso % (Auto) 0 (0-1) % Urine Opiates Screen Negative (NEGATIVE) Ur Oxycodone Screen Negative (NEGATIVE) Urine Methadone Screen Negative (NEGATIVE) Ur Propoxyphene Screen Negative (NEGATIVE) Ur Barbiturates Screen Negative (NEGATIVE) Ur Tricyclics Screen Negative (NEGATIVE) Ur Phencyclidine Scrn Negative (NEGATIVE) Ur Amphetamine Screen Negative (NEGATIVE) U Methamphetamines Scrn Negative (NEGATIVE) Urine MDMA Screen Negative (NEGATIVE) U Benzodiazepines Scrn Negative (NEGATIVE) U Cocaine Metab Screen Negative (NEGATIVE) U Marijuana (THC) Screen Negative (NEGATIVE) Med Orders - Current: Current Medications Acetaminophen (Tylenol Bulk Bottle) 325 mg PO Q4H PRN PRN Reason: Pain Benzocaine (Wfnh-H-Pyxpjqw 20% [place]) 0 gm TOP Q4H PRN PRN Reason: Perineal Comfort Measure Last Admin: 01/26/19 08:21 Dose: 1 spray Docusate Sodium (Colace) 100 mg PO BID [facility] Last Admin: 01/25/19 20:45 Dose: 100 mg Ephedrine Sulfate (Ephedrine Sulfate) 5 - 10 mg IV ASDIRECTED PRN PRN Reason: Systolic BP less than 100 Fluticasone Propionate (Flonase) 0 gm NASBOTH DAILY [facility] Last Admin: 01/25/19 17:29 Dose: 2 spr Ibuprofen (Motrin Bulk Bottle) 600 mg PO Q6H PRN PRN Reason: Pain Last Admin: 01/25/19 17:23 Dose: 600 mg Naloxone HCl (Narcan) 0.1 mg IVPUSH Q5M PRN PRN Reason: IF RESP RATE LESS THAN 6 Ondansetron HCl (Zofran) 4 mg IV Q4H PRN PRN Reason: Nausea/Vomiting Sodium Chloride (Saline Flush) 10 ml FLUSH ASDIRECTED PRN PRN Reason: Keep Vein Open Witch Lu (Tucks) 1 pad TOP ASDIRECTED PRN PRN Reason: Hemorrhoids Last Admin: 01/26/19 08:20 Dose: 1 pad Discontinued Medications Acetaminophen (Tylenol) 650 mg PO Q4H PRN PRN Reason: Pain (Mild 1-3) and fever Ephedrine Sulfate (Ephedrine Sulfate) 5 mg IVPUSH ONETIME ONE Stop: 01/25/19 08:20 Last Admin: 01/25/19 16:41 Dose: Not Given Ephedrine Sulfate (Ephedrine Sulfate) Confirm Administered Dose 50 mg .ROUTE .STK-MED ONE Stop: 01/25/19 11:23 Last Admin: 01/25/19 16:41 Dose: Not Given Fentanyl (Sublimaze) 100 mcg IVPUSH Q1H PRN PRN Reason: Pain (moderate 4-6) Sodium Chloride (Normal Saline) 1,000 mls @ 999 mls/hr IV .BOLUS ONE Stop: 01/25/19 08:43 Last Admin: 01/25/19 07:48 Dose: 999 mls/hr Lactated Ringer's (Ringers, Lactated) 1,000 mls @ 999 mls/hr IV ONETIME ONE Stop: 01/25/19 09:19 Last Admin: 01/25/19 10:42 Dose: 999 mls/hr Sodium Chloride (Normal Saline) 1,000 mls @ 125 mls/hr IV ASDIRECTED [facility] Last Admin: 01/25/19 08:47 Dose: 125 mls/hr Ropivacaine (Naropin 0.2%) Confirm Administered Dose 100 mls @ as directed .ROUTE .STK-MED ONE Stop: 01/25/19 11:29 Ropivacaine (Naropin 0.2%) 100 mls @ 0 mls/hr EPIDUR ASDIRECTED [facility]; Protocol Last Admin: 01/25/19 11:15 Dose: 12 ml/hr, 12 mls/hr Oxytocin/Sodium Chloride (Pitocin In Ns 20 Units/1,000 Ml) Confirm Administered Dose 20 unit in 1,000 mls @ as directed .ROUTE .STK-MED ONE Stop: 01/25/19 14:19 Last Admin: 01/25/19 14:43 Dose: 999 mls/hr Oxytocin/Sodium Chloride (Pitocin In Ns 20 Units/1,000 Ml) 20 unit in 1,000 mls @ 999 mls/hr IV ONETIME ONE; Protocol Stop: 01/25/19 17:53 Last Admin: 01/25/19 17:04 Dose: Not Given Lidocaine HCl (Xylocaine 1%) Confirm Administered Dose 100 ml .ROUTE .STK-MED ONE Stop: 01/25/19 14:19 Last Admin: 01/25/19 17:03 Dose: Not Given Misoprostol (Cytotec) 50 mcg VAG ONETIME ONE Stop: 01/25/19 07:54 Last Admin: 01/25/19 08:00 Dose: 50 mcg - Interaction Disposition, : in Room with Family Interaction: Holding Infant Feeding: Bottle Fed Support Person: Mother, Significant Other - Recovery Exam Fundal Tone: Firms with Massage Fundal Level: 1 Fingerbreadths Below Umbilicus Fundal Placement: Midline Lochia Amount: Small Lochia Color: Rubra/Red Perineum Description: Intact, Minimal Bruising/Swelling Episiotomy/Laceration: Approximated Bladder Status: Palpable Urinary Elimination: Voided - Exam General: Alert, Oriented HEENT: Pupils Equal, Pupils Reactive, Mucous Membr. Moist/[place] Neck: Supple Lungs: Clear to Auscultation, Normal Respiratory Effort Cardiovascular: Regular Rate, Regular Rhythm GI/Abdominal Exam: Normal Bowel Sounds, Soft, Non-Tender, No Distention, No Mass , Pelvis Stable Extremities: Normal Inspection, Normal Range of Motion, Non-Tender, No Pedal Edema, Normal Capillary Refill Skin: Warm, Dry, Intact Wound/Incisions: Healing Well Neurological: No New Focal Deficit Psy/Mental Status: Alert, Normal Affect, Normal Mood - Problem List & Annotations (1) SNOMED Code(s): 13051615 Code(s): Z34.90 - ENCNTR FOR SUPRVSN OF NORMAL , UNSP, UNSP TRIMESTER Status: Acute Current Visit: Yes Qualifiers: Weeks of gestation: 40 weeks Qualified Code(s): Z3A.40 - 40 weeks gestation of (2) Elective induction of labor planned SNOMED Code(s): 760466710 Code(s): WBP7170 - Status: Acute Current Visit: Yes (3) URI (upper respiratory infection) SNOMED Code(s): 03128931 Code(s): J06.9 - ACUTE UPPER RESPIRATORY INFECTION, UNSPECIFIED Status: Acute Current Visit: Yes Qualifiers: URI type: unspecified viral URI Qualified Code(s): J06.9 - Acute upper respiratory infection, unspecified (4) Del w/ 2 deg lac-unsp SNOMED Code(s): 6332006 Code(s): O70.1 - SECOND DEGREE PERINEAL LACERATION DURING DELIVERY Status: Acute Current Visit: Yes (5) Vacuum extractor delivery, delivered SNOMED Code(s): 355837151 Code(s): O66.5 - ATTEMPTED APPLICATION OF VACUUM EXTRACTOR AND FORCEPS Status: Acute Current Visit: Yes (6) Vaginal delivery SNOMED Code(s): 833252023 Code(s): O80 - ENCOUNTER FOR FULL-TERM UNCOMPLICATED DELIVERY Status: Acute Current Visit: Yes - Problem List Review Problem List Initiated/Reviewed/Updated: Yes - My Orders Last 24 Hours: My Active Orders 01/25/19 08:03 Up ad Cara [RC] ASDIRECTED Ondansetron [Zofran] 4 mg IV Q4H PRN Sodium Chloride 0.9% [Saline Flush] 10 ml FLUSH ASDIRECTED PRN DVT/VTE Prophylaxis Reflex [OM.PC] Routine Resuscitation Status Routine 01/25/19 08:04 Patient Status [ADT] Routine Notify Provider [RC] PRN Vital Signs [RC] PER UNIT ROUTINE Saline Lock Insert [OM.PC] Routine 01/25/19 08:08 Antiembolic Devices [RC] .Routine VTE/DVT Education [RC] Click to Edit 01/25/19 08:09 Notify Provider Vital Signs [RC] PRN 01/25/19 08:19 Communication Order [RC] Per Unit Routine Epidural Catheter Management [OM.PC] Urgent 01/25/19 08:30 Insert Urinary Catheter [OM.PC] ASDIRECTED 01/25/19 15:12 Patient Status [ADT] Routine May Shower [RC] ASDIRECTED Vital Signs [RC] PFP Acetaminophen [Tylenol Bulk Bottle] 325 mg PO Q4H PRN Benzocaine [Gosw-U-Rucdjcv 20% [place]] See Dose Instructions TOP Q4H PRN Ibuprofen [Motrin Bulk Bottle] 600 mg PO Q6H PRN Witch Lu [Tucks] 1 pad TOP ASDIRECTED PRN Assess Lochia [WOMSER] Per Unit Routine Assess Uterine Involution [WOMSER] Per Unit Routine 01/25/19 15:14 Ice Therapy [OM.PC] Per Unit Routine Perineal Care [OM.PC] Per Unit Routine Peripheral IV Discontinue [OM.PC] Routine Sitz Bath [OM.PC] Per Unit Routine 01/25/19 16:15 Fluticasone Propionate [Flonase] 0 gm NASBOTH DAILY 01/25/19 21:00 Docusate Sodium [Colace] 100 mg PO BID 01/25/19 Breakfast Regular Diet [DIET] 01/25/19 Dinner Regular Diet [DIET] 01/25/19 Lunch Clear Liquid Diet [DIET] - Assessment Assessment:: 01/25/19 28 yo operative vaginal delivery 2nd degree episiotomy without extension, repaired Pain controlled Plans to formula feed only FF, bleeding light 01/26/19 28 yo day 1 PP Episiotomy repair is well approximated, pain controlled, voiding without difficulty FF, bleeding light Formula feeding Desires to go home today Hgb 10.5 today - Plan Plan:: I personally performed or re-performed the physical examination and medical decision making. I have verified all student documentation or findings, including history, physical exam and/or medical decision making. Billie Amaral APRN, CNM. CFNP 01/25/19 Routine cares Shahbaz kit for pain control Tub baths for episiotomy Formula feeding support CBC in am 01/26/19 Discharge home later today Dermoplast spray for perineal area Tub bath today for episiotomy Feeding support, education <Billie Amaral - Last Filed: 01/26/19 17:16> - Patient Data Vital Signs - Most Recent: Last Vital Signs Temp 96.5 F 01/26/19 16:10 Pulse 70 01/26/19 16:10 Resp 16 01/26/19 16:10 BP 103/60 01/26/19 16:10 Pulse Ox 98 01/26/19 16:10 I&O - Last 24 Hours: Intake & Output 01/26/19 01/26/19 01/26/19 06:59 14:59 22:59 Intake Total 600 Balance 600 Lab Results - Last 24 Hours: Laboratory Results - last 24 hr 01/26/19 Range/Units 06:01 WBC 11.1 H (4.5-11.0) K/uL RBC 3.67 (3.30-5.50) M/uL Hgb 10.5 L (12.0-15.0) g/dL Hct 32.0 L (36.0-48.0) % MCV 87 (80-98) fL MCH 29 (27-31) pg MCHC 33 (32-36) % Plt Count 151 (150-400) K/uL Neut % (Auto) 75 H (36-66) % Lymph % (Auto) 16 L (24-44) % [place] % (Auto) 9 H (2-6) % Eos % (Auto) 1 L (2-4) % Baso % (Auto) 0 (0-1) % Med Orders - Current: Current Medications Acetaminophen (Tylenol Bulk Bottle) 325 mg PO Q4H PRN PRN Reason: Pain Benzocaine (Lwva-V-Besuixo 20% [place]) 0 gm TOP Q4H PRN PRN Reason: Perineal Comfort Measure Last Admin: 01/26/19 08:21 Dose: 1 spray Docusate Sodium (Colace) 100 mg PO BID [facility] Last Admin: 01/26/19 10:19 Dose: 100 mg Ephedrine Sulfate (Ephedrine Sulfate) 5 - 10 mg IV ASDIRECTED PRN PRN Reason: Systolic BP less than 100 Fluticasone Propionate (Flonase) 0 gm NASBOTH DAILY [facility] Last Admin: 01/26/19 10:18 Dose: 1 spr Ibuprofen (Motrin Bulk Bottle) 600 mg PO Q6H PRN PRN Reason: Pain Last Admin: 01/25/19 17:23 Dose: 600 mg Naloxone HCl (Narcan) 0.1 mg IVPUSH Q5M PRN PRN Reason: IF RESP RATE LESS THAN 6 Ondansetron HCl (Zofran) 4 mg IV Q4H PRN PRN Reason: Nausea/Vomiting Sodium Chloride (Saline Flush) 10 ml FLUSH ASDIRECTED PRN PRN Reason: Keep Vein Open Witirma Leigh (Tucks) 1 pad TOP ASDIRECTED PRN PRN Reason: Hemorrhoids Last Admin: 01/26/19 08:20 Dose: 1 pad Discontinued Medications Acetaminophen (Tylenol) 650 mg PO Q4H PRN PRN Reason: Pain (Mild 1-3) and fever Ephedrine Sulfate (Ephedrine Sulfate) 5 mg IVPUSH ONETIME ONE Stop: 01/25/19 08:20 Last Admin: 01/25/19 16:41 Dose: Not Given Ephedrine Sulfate (Ephedrine Sulfate) Confirm Administered Dose 50 mg .ROUTE .STK-MED ONE Stop: 01/25/19 11:23 Last Admin: 01/25/19 16:41 Dose: Not Given Fentanyl (Sublimaze) 100 mcg IVPUSH Q1H PRN PRN Reason: Pain (moderate 4-6) Sodium Chloride (Normal Saline) 1,000 mls @ 999 mls/hr IV .BOLUS ONE Stop: 01/25/19 08:43 Last Admin: 01/25/19 07:48 Dose: 999 mls/hr Lactated Ringer's (Ringers, Lactated) 1,000 mls @ 999 mls/hr IV ONETIME ONE Stop: 01/25/19 09:19 Last Admin: 01/25/19 10:42 Dose: 999 mls/hr Sodium Chloride (Normal Saline) 1,000 mls @ 125 mls/hr IV ASDIRECTED [facility] Last Admin: 01/25/19 08:47 Dose: 125 mls/hr Ropivacaine (Naropin 0.2%) Confirm Administered Dose 100 mls @ as directed .ROUTE .STK-MED ONE Stop: 01/25/19 11:29 Ropivacaine (Naropin 0.2%) 100 mls @ 0 mls/hr EPIDUR ASDIRECTED [facility]; Protocol Last Admin: 01/25/19 11:15 Dose: 12 ml/hr, 12 mls/hr Oxytocin/Sodium Chloride (Pitocin In Ns 20 Units/1,000 Ml) Confirm Administered Dose 20 unit in 1,000 mls @ as directed .ROUTE .STK-MED ONE Stop: 01/25/19 14:19 Last Admin: 01/25/19 14:43 Dose: 999 mls/hr Oxytocin/Sodium Chloride (Pitocin In Ns 20 Units/1,000 Ml) 20 unit in 1,000 mls @ 999 mls/hr IV ONETIME ONE; Protocol Stop: 01/25/19 17:53 Last Admin: 01/25/19 17:04 Dose: Not Given Lidocaine HCl (Xylocaine 1%) Confirm Administered Dose 100 ml .ROUTE .STK-MED ONE Stop: 01/25/19 14:19 Last Admin: 01/25/19 17:03 Dose: Not Given Misoprostol (Cytotec) 50 mcg VAG ONETIME ONE Stop: 01/25/19 07:54 Last Admin: 03/18/19 08:00 Dose: 50 mcg - Plan Plan:: I personally performed or re-performed the physical examination and medical decision making. I have verified all student documentation or findings, including history, physical exam and/or medical decision making. Billie Amaral APRN, ALEJANDRA, CFNP
[2019-01-26] MEDS: Fluticasone Propionate Nasal Spray 16 GM Bottle NASBOTH SCH (10:18)
[2019-01-26] MEDS: Docusate Sodium 100 MG Cap PO SCH ×2 (10:19→18:13)
[2019-01-26 16:10] VITALS: BP 103/60
== END 2019-01-26 18:25 | disposition home or self-care (01) | DRG 807 ==
LOC: JP.OB 06:48 → OBSVTOIN 14:42 → JP.OB 14:42 → JP.MS 18:41
PROVIDERS: ADMIT Nurse Practitioner Family; ATTEND Nurse Practitioner Family
PROC: 10D07Z6 Extraction of Products of Conception, Vacuum, Via Natural or Artificial Opening (ICD-10-PCS; principal; 2019-01-25)
PROC: 0KQM0ZZ Repair Perineum Muscle, Open Approach (ICD-10-PCS; 2019-01-25)
PROC: 0W8NXZZ Division of Female Perineum, External Approach (ICD-10-PCS; 2019-01-25)
PROC: 10907ZC Drainage of Amniotic Fluid, Therapeutic from Products of Conception, Via Natural or Artificial Opening (ICD-10-PCS; 2019-01-25)
PROC: 3E0P7VZ Introduction of Hormone into Female Reproductive, Via Natural or Artificial Opening (ICD-10-PCS; 2019-01-25)
PROC: 3E033VJ Introduction of Other Hormone into Peripheral Vein, Percutaneous Approach (ICD-10-PCS; 2019-01-25)
PROC: 00HU33Z Insertion of Infusion Device into Spinal Canal, Percutaneous Approach (ICD-10-PCS; 2019-01-25)
DX: Z34.90 Encounter for supervision of normal pregnancy, unspecified, unspecified trimester (principal); O76 Abnormality in fetal heart rate and rhythm complicating labor and delivery; Z37.0 Single live birth; O66.5 Attempted application of vacuum extractor and forceps; O70.1 Second degree perineal laceration during delivery; O99.62 Diseases of the digestive system complicating childbirth; O62.1 Secondary uterine inertia; O99.344 Other mental disorders complicating childbirth; F32.9 Major depressive disorder, single episode, unspecified; Z3A.40 40 weeks gestation of pregnancy; K21.9 Gastro-esophageal reflux disease without esophagitis; R41.9 Unspecified symptoms and signs involving cognitive functions and awareness; J06.9 Acute upper respiratory infection, unspecified; F81.9 Developmental disorder of scholastic skills, unspecified; Z86.32 Personal history of gestational diabetes
CPT/HCPCS: 36415; 51702; 80305; 81001; 85025; A9270; J2795 ×2; J7030 ×2; J7120; 59409; J2590

== ENCOUNTER 2020-05-31 11:13 | Emergency (ER) | payer MEDICARE, MEDICAID ==
[2020-05-31 12:20] VITALS: BP 119/70; PULSE 78
[2020-05-31] MEDS ORDERED: Bacitracin Oint 1 GM U/D Packet TOP ONE (12:21)
--- NOTE | 2020-05-31 12:27 | EDM.PDOC ---
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 Tetanus is UTD. Here for eval. 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 (see below) (none) - Related Data Allergies Allergy/AdvReac Type Severity Reaction Status Date / Time No Known Allergies Allergy Verified 05/02/18 21:21 Home Meds: Home Meds Calcium Carbonate/Vitamin D3 [Calcium 600 + Vit D Tablet] 1 each PO DAILY 07/23/16 [History] Omeprazole Magnesium [Prilosec Otc] 20 mg PO DAILY 07/23/16 [History] predniSONE 20 mg PO ASDIRECTED 05/31/20 [History] Past Medical History - Past Health History Medical/Surgical History: Denies Medical/Surgical History Cardiovascular History: Reports: None 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 History: Reports: GERD 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 Musculoskeletal History: scoliosis Psychiatric History: Reports: Anxiety, Depression, Learning Disability Endocrine/Metabolic History: Reports: Diabetes, Gestational - Infectious Disease History Infectious Disease History: Reports: Chicken Pox - Past Surgical History Other HEENT Surgeries/Procedures: lazy eye surgery Social & Family History - Family History Family Medical History: Noncontributory - Tobacco Use Smoking Status *Q: Current Every Day Smoker Years of Tobacco use: 15 Packs/Tins Daily: 1 - Caffeine Use Caffeine Use: Reports: Coffee, Soda Other Caffeine Use: rarely - Recreational Drug Use Recreational Drug Use: No ED ROS GENERAL - Review of Systems Review Of Systems: See Below Constitutional: Reports: No Symptoms Skin: Reports: Wound (lac L 5th finger) Neurological: Reports: No Symptoms ED EXAM, SKIN/RASH Exam: See Below Exam Limited By: No Limitations General Appearance: Alert, WD/WN, No Apparent Distress Extremities: Other (wound L 5th finger) Neurological: Alert, Oriented, CN II-XII Intact, Normal Cognition, No Motor /Sensory Deficits Psychiatric: Normal Affect, Normal Mood Skin: Warm, Dry, Normal Color, No Rash, Wound/Incision (1.5 cm lac of distal L 5th finger) Location, Skin: Upper Extremity, Left Characteristics: Linear Associated features: Tenderness. No: Warmth, Lymphangitis Course - Vital Signs Text/Narrative:: Wound cleaned and tube gauze applied per RN Last Recorded V/S: Last Vital Signs Temp 36.6 C 05/31/20 11:58 Pulse 78 05/31/20 11:58 Resp 13 05/31/20 11:58 BP 119/70 05/31/20 11:58 Pulse Ox 100 05/31/20 11:58 - Orders/Labs/Meds Orders: Active Orders 24 hr Category Date Time Status Bacitracin [Bacitracin Oint 1 GM] Med 05/31/20 12:21 Once 1 dose TOP ONETIME ONE Medication Orders Bacitracin (Bacitracin Oint 1 Gm) 1 dose TOP ONETIME ONE Stop: 05/31/20 12:22 Meds: Medications Generic Name Dose Route Start Last Admin Trade Name Mary Beth PRN Reason Stop Dose Admin Bacitracin 1 dose 05/31/20 12:21 Bacitracin Oint 1 Gm TOP 05/31/20 12:22 ONETIME ONE Departure - Departure Time of Disposition: 12:30 Disposition: Home, Self-Care 01 Condition: Good Clinical Impression: Finger laceration Qualifiers: Encounter type: initial encounter Finger: little finger Damage to nail status: without damage Foreign body presence: without foreign body Laterality: left Qualified Code(s): S61.217A - Laceration without foreign body of left little finger without damage to nail, initial encounter - Discharge Information *PRESCRIPTION DRUG MONITORING PROGRAM REVIEWED*: No *COPY OF PRESCRIPTION DRUG MONITORING REPORT IN PATIENT ALEX: No Instructions: Laceration Care, Adult, [id number] Referrals: Jonah Majano MD [Primary Care Provider] - Additional Instructions: Leave today's dressing on for 24 hrs. Then clean wound twice daily with 1/2 water and 1/2 peroxide. Dry. Apply Bacitracin ointment and a new dressing(Band- Aid). Recheck for signs of infection. Keep wound clean and dry for at least 3 days. Sepsis Event Note (ED) - Evaluation Sepsis Screening Result: No Definite Risk - Focused Exam Vital Signs: Vital Signs Temp Pulse Resp BP Pulse Ox 05/31/20 11:58 36.6 C 78 13 119/70 100 05/31/20 11:40 36.6 C 78 13 119/70 100 - My Orders Last 24 Hours: My Active Orders 05/31/20 12:21 Bacitracin [Bacitracin Oint 1 GM] 1 dose TOP ONETIME ONE - Assessment/Plan Last 24 Hours: My Active Orders 05/31/20 12:21 Bacitracin [Bacitracin Oint 1 GM] 1 dose TOP ONETIME ONE
== END 2020-05-31 12:36 | disposition home or self-care (01) ==
LOC: JP.ED 11:13
DX: S61.217A Laceration without foreign body of left little finger without damage to nail, initial encounter (principal); K21.9 Gastro-esophageal reflux disease without esophagitis; M41.9 Scoliosis, unspecified; F17.210 Nicotine dependence, cigarettes, uncomplicated; Z79.899 Other long term (current) drug therapy; Z23 Encounter for immunization; W26.8XXA Contact with other sharp object(s), not elsewhere classified, initial encounter
CPT/HCPCS: 99282

== ENCOUNTER 2021-03-03 16:04 | Emergency (ER) | payer MEDICARE, MEDICAID ==
[2021-03-03 16:22] VITALS: BP 112/63; PULSE 80
--- NOTE | 2021-03-03 16:30 | EDM.PDOC ---
ED HPI GENERAL MEDICAL PROBLEM - General Chief Complaint: Upper Extremity Injury/Pain Stated Complaint: RIGHT WRIST PAIN Time Seen by Provider: 03/03/21 16:26 Source of Information: Reports: Patient, RN Notes Reviewed History Limitations: Reports: No Limitations - History of Present Illness INITIAL COMMENTS - FREE TEXT/NARRATIVE: 30-year-old female presents emergency department today complaint of right hand pain she intentionally punched a counter yesterday now is experiencing pain over the medial aspect of her hand, no functional complaints Right Hand Pain Score (Numeric/FACES): 7 - Related Data Allergies Allergy/AdvReac Type Severity Reaction Status Date / Time No Known Allergies Allergy Verified 03/03/21 16:22 Home Meds: Home Meds Calcium Carbonate/Vitamin D3 [Calcium 600 + Vit D Tablet] 1 each PO DAILY 07/23/16 [History] Omeprazole Magnesium [Prilosec Otc] 20 mg PO DAILY 07/23/16 [History] Ibuprofen 800 mg PO ASDIRECTED PRN 03/03/21 [History] Past Medical History 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 History: Reports: GERD 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 Musculoskeletal History: scoliosis Psychiatric History: Reports: Anxiety, Depression, Learning Disability Endocrine/Metabolic History: Reports: Diabetes, Gestational - Infectious Disease History Infectious Disease History: Reports: Chicken Pox - Past Surgical History Other HEENT Surgeries/Procedures: lazy eye surgery Endocrine Surgical History: Reports: None Social & Family History - Family History Family Medical History: No Pertinent Family History - Tobacco Use Tobacco Use Status *Q: Current Every Day Tobacco User Years of Tobacco use: 15 Packs/Tins Daily: 1 - Caffeine Use Caffeine Use: Reports: Coffee, Soda Other Caffeine Use: rarely - Recreational Drug Use Recreational Drug Use: No Review of Systems - Review of Systems Review Of Systems: See Below Musculoskeletal: Reports: Hand Pain Skin: Reports: No Symptoms Neurological: Reports: No Symptoms ED EXAM, GENERAL - Physical Exam Exam: See Below Free Text/Narrative:: Examination the right hand and appreciate any deformity there is no erythema there is no edema she has full range of motion however is limited secondary to pain radial pulses +2 sensation is intact Course - Vital Signs Last Recorded V/S: Last Vital Signs Temp 97.8 F 03/03/21 16:20 Pulse 80 03/03/21 16:20 Resp 16 03/03/21 16:20 BP 112/63 03/03/21 16:20 Pulse Ox 98 03/03/21 16:20 - Orders/Labs/Meds Orders: Active Orders 24 hr Category Date Time Status Hand Comp Min 3V Rt [CR] Stat Exams 03/03/21 16:28 Ordered Departure - Departure Time of Disposition: 17:13 Disposition: Home, Self-Care 01 Condition: Fair Clinical Impression: Contusion of right hand Qualifiers: Encounter type: initial encounter Qualified Code(s): S60.221A - Contusion of right hand, initial encounter - Discharge Information Instructions: Contusion, [id number] Referrals: Jonah Majano MD [Primary Care Provider] - Forms: ED Department Discharge Additional Instructions: Use Tylenol Motrin as needed for pain control, please followup with your primary care provider in 3-5 days if not better, please call return to the emergency department with worsening of symptoms. Sepsis Event Note (ED) - Evaluation Sepsis Screening Result: No Definite Risk - Focused Exam Vital Signs: Vital Signs Temp Pulse Resp BP Pulse Ox 03/03/21 16:20 97.8 F 80 16 112/63 98 - My Orders Last 24 Hours: My Active Orders 03/03/21 16:28 Hand Comp Min 3V Rt [CR] Stat - Assessment/Plan Last 24 Hours: My Active Orders 03/03/21 16:28 Hand Comp Min 3V Rt [CR] Stat Plan: Assessment Acuity = acute Site and laterality = contusion right hand Etiology = trauma Manifestations = none Location of injury = Home Lab values = hand x-ray I did review films myself I cannot appreciate any acute process, the official read from radiology is pending Plan Continue to use ibuprofen or ice as needed follow-up primary care 3 to 5 days if not better This note was dictated using [employer] voice recognition software please call with any questions on syntax or grammar.
--- NOTE | 2021-03-05 09:40 | CR ---
Hand Comp Min 3V Rt CLINICAL HISTORY: Trauma and pain FINDINGS: There is no acute fracture or dislocation of the hand. Impression: Negative
== END 2021-03-03 17:20 | disposition home or self-care (01) ==
LOC: JP.ED 16:04
DX: S60.211A Contusion of right wrist, initial encounter (principal); K21.9 Gastro-esophageal reflux disease without esophagitis; Z79.899 Other long term (current) drug therapy; Z72.0 Tobacco use; W22.8XXA Striking against or struck by other objects, initial encounter
CPT/HCPCS: 73130-26-RT; 73130-RT; 99283-25

== ENCOUNTER 2023-02-11 23:27 | Emergency (ER) | payer MEDICARE, MEDICAID ==
[2023-02-11] MEDS ORDERED: fentaNYL 50 MCG/ML SDV IVPUSH ONE (23:58)
[2023-02-12 00:15] VITALS: BP 128/85; PULSE 89
== END 2023-02-12 00:54 | disposition home or self-care (01) ==
LOC: JP.ED 23:27
DX: S82.852A Displaced trimalleolar fracture of left lower leg, initial encounter for closed fracture (principal); K21.9 Gastro-esophageal reflux disease without esophagitis; Z79.899 Other long term (current) drug therapy; W00.0XXA Fall on same level due to ice and snow, initial encounter
CPT/HCPCS: 29515; 73610; 96374; 99284; J3010

== ENCOUNTER 2023-02-17 06:29 | Day surgery (SDC) | payer MEDICARE, MEDICAID ==
[2023-02-17] MEDS ORDERED: Lactated Ringers 1,000 ML IV SCH (07:00)
[2023-02-17] MEDS ORDERED: ceFAZolin 1 GM in Sodium Chloride 0.9% 50 ML IV ONE (07:00)
[2023-02-17] MEDS ORDERED: Bupivacaine 0.5% 30 ML SDV ONE (07:07)
[2023-02-17] MEDS ORDERED: Ondansetron 4 MG/2 ML SDV ONE (07:13)
[2023-02-17] MEDS ORDERED: Dexamethasone 4 MG/ML SDV ONE (07:13)
[2023-02-17] MEDS ORDERED: Neostigmine Methylsulfate 1 MG/ML 5 ML Syringe ONE (07:13)
[2023-02-17] MEDS ORDERED: Glycopyrrolate 0.2 MG/ML 5 ML MDV ONE (07:13)
[2023-02-17] MEDS ORDERED: Rocuronium 50 MG/5 ML Vial ONE (07:13)
[2023-02-17] MEDS ORDERED: Propofol 200 MG/20 ML SDV ONE (07:13)
[2023-02-17] MEDS ORDERED: fentaNYL 250 MCG/5 ML SDV ONE (07:14)
[2023-02-17 07:23] LABS: ESTIMATED GFR 118 mL/min (>60)
[2023-02-17] MEDS ORDERED: Nozin Nasal Sanitizer NASBOTH ONE (07:25)
[2023-02-17] MEDS ORDERED: fentaNYL 100 MCG/2 ML SDV ONE ×2 (09:07→09:14)
[2023-02-17] MEDS ORDERED: Acetaminophen/HYDROcodone 325-5 MG Tab PO ONE (10:30)
[2023-02-17] MEDS ORDERED: Labetalol 20 MG/4 ML Syringe ONE (10:31)
[2023-02-17 11:19] VITALS: BP 122/75; PULSE 94
== END 2023-02-17 11:30 | disposition home or self-care (01) ==
LOC: JP.SDS 06:29
PROVIDERS: ATTEND Specialist
DX: S82.842A Displaced bimalleolar fracture of left lower leg, initial encounter for closed fracture (principal); O99.891 Other specified diseases and conditions complicating pregnancy; K21.9 Gastro-esophageal reflux disease without esophagitis; O99.340 Other mental disorders complicating pregnancy, unspecified trimester; F32.A Depression, unspecified; O99.330 Smoking (tobacco) complicating pregnancy, unspecified trimester; F17.200 Nicotine dependence, unspecified, uncomplicated; O24.419 Gestational diabetes mellitus in pregnancy, unspecified control; Z79.899 Other long term (current) drug therapy; Z88.2 Allergy status to sulfonamides
CPT/HCPCS: 27814; 36415; 76000; 80053; 84703; 85027; A9270; C1713; J0690; J1100; J2405; J2704; J2710; J3010; J3490; J7120

== ENCOUNTER 2023-06-29 21:20 | Emergency (ER) | payer MEDICARE, MEDICAID ==
[2023-06-29 21:32] VITALS: BP 152/103; PULSE 110
== END 2023-06-29 22:25 | disposition home or self-care (01) ==
LOC: JP.ED 21:20
DX: H57.89 Other specified disorders of eye and adnexa (principal); K21.9 Gastro-esophageal reflux disease without esophagitis; Z79.899 Other long term (current) drug therapy; Z88.1 Allergy status to other antibiotic agents; Z72.0 Tobacco use
CPT/HCPCS: 99283

== ENCOUNTER 2024-02-11 05:56 | Day surgery (SDC) | payer MEDICARE, MEDICAID ==
[2024-02-11] MEDS: Lactated Ringers 1,000 ML IV SCH (06:31)
[2024-02-11 06:33] LABS: HEMATOCRIT 33.2 % (34.3-46.0); HEMOGLOBIN 11.3 g/dL (11.2-15.5); MEAN CORPUSCULAR HEMOGLOBIN 29.4 pg (31.6-35.5); MEAN CORPUSCULAR VOLUME 86.2 fL (81.4-99.0); RED BLOOD CELL COUNT 3.85 M/uL (3.77-5.24)
[2024-02-11 06:44] LABS: BLOOD UREA NITROGEN,BUN 8 mg/dL (7-18); CALCIUM 8.4 mg/dL (8.5-10.1); CARBON DIOXIDE,CO2 23 mmol/L (21-32); CHLORIDE,CL 106 mmol/L (100-108); CREATININE 0.7 mg/dL (0.6-1.0); ESTIMATED GFR 117 mL/min (>60); GLUCOSE RANDOM 78 mg/dL (74-106); POTASSIUM,K 3.5 mmol/L (3.6-5.2); SODIUM,NA 142 mmol/L (140-148)
[2024-02-11] MEDS: Nozin Nasal Sanitizer NASBOTH ONE (06:51)
[2024-02-11 06:53] LABS: ANION GAP 16.5 mmol/L (5.0-14.0)
[2024-02-11] MEDS ORDERED: fentaNYL 100 MCG/2 ML SDV ONE ×3 (07:11→08:08)
[2024-02-11] MEDS ORDERED: Propofol 200 MG/20 ML SDV ONE (07:11)
[2024-02-11] MEDS ORDERED: Midazolam 1 MG/ML 2 ML SDV ONE (07:11)
[2024-02-11] MEDS: ceFAZolin 2 GM in Premix Bag 1 BAG IV ONE (07:50)
[2024-02-11] MEDS ORDERED: Ondansetron 4 MG/2 ML SDV ONE (08:07)
[2024-02-11] MEDS ORDERED: Dexamethasone 4 MG/ML SDV ONE (08:07)
[2024-02-11] MEDS: Bupivacaine 0.5% 50 ML MDV ONE (08:20)
[2024-02-11 10:21] VITALS: BP 122/79; PULSE 87
[2024-02-11] MEDS: Acetaminophen/HYDROcodone 325-5 MG Tab PO PRN (10:28)
== END 2024-02-11 10:50 | disposition home or self-care (01) ==
LOC: JP.SDS 05:56
PROVIDERS: ATTEND Specialist
DX: T84.84XA Pain due to internal orthopedic prosthetic devices, implants and grafts, initial encounter (principal); F17.200 Nicotine dependence, unspecified, uncomplicated; Y83.9 Surgical procedure, unspecified as the cause of abnormal reaction of the patient, or of later complication, without mention of misadventure at the time of the procedure
CPT/HCPCS: 20680; 36415; 80048; 84703; 85027; A9270; J0665; J0690; J1100; J2250; J2405; J2704; J3010; J7120

== ENCOUNTER 2024-02-13 17:51 | Emergency (ER) | payer MEDICARE, MEDICAID ==
[2024-02-13 18:24] VITALS: BP 161/89; PULSE 74
== END 2024-02-13 18:41 | disposition home or self-care (01) ==
LOC: JP.ED 17:51
DX: M96.830 Postprocedural hemorrhage of a musculoskeletal structure following a musculoskeletal system procedure (principal); K21.9 Gastro-esophageal reflux disease without esophagitis; Z88.2 Allergy status to sulfonamides; Z88.1 Allergy status to other antibiotic agents; Z79.899 Other long term (current) drug therapy
CPT/HCPCS: 99283

== ENCOUNTER 2024-07-04 15:38 | Emergency (ER) | payer MEDICARE, MEDICAID ==
[2024-07-04 15:46] VITALS: BP 125/89; PULSE 74
== END 2024-07-04 16:16 | disposition home or self-care (01) ==
LOC: JP.ED 15:38
DX: K02.9 Dental caries, unspecified (principal); K21.9 Gastro-esophageal reflux disease without esophagitis; Z79.899 Other long term (current) drug therapy; Z88.2 Allergy status to sulfonamides
CPT/HCPCS: 99283